=== PATIENT | female | born 1965 | race Caucasian/White ===

== ENCOUNTER 2017-03-30 07:47 | Day surgery (SDC) | payer OTHER ==
[2016-03-18 13:50] VITALS: BMI 35.7
[2017-03-30] MEDS ORDERED: Propofol 10 mg/ml Inj (20 ML) ONE ×2 (10:32)
[2017-03-30] MEDS ORDERED: Lactated Ringer's 500 ML IV SCH (10:45)
[2017-03-30 11:09] VITALS: TEMP 97.3
[2017-03-30 12:13] VITALS: BP 128/72; PULSE 59; RESP 15; O2SAT 99
== END 2017-03-30 12:00 | disposition home or self-care (01) ==
LOC: C.ENDO 07:47
PROVIDERS: ATTEND Internal Medicine Gastroenterology
DX: D12.0 Benign neoplasm of cecum (principal); K64.8 Other hemorrhoids
CPT/HCPCS: 45388; 88305; J2704; J7120